=== PATIENT | male | born 1965 | race Caucasian/White ===

== ENCOUNTER 2023-04-20 07:43 | Outpatient (CLI) | payer OTHER, SELFPAY | END 2023-04-20 07:44 | disposition home or self-care (01) | PROVIDERS: PCP Family Medicine; Visit Provider Family Medicine | DX: Z00.00 Encounter for general adult medical examination without abnormal findings (principal); E78.5 Hyperlipidemia, unspecified; I10 Essential (primary) hypertension; Z12.5 Encounter for screening for malignant neoplasm of prostate | CPT/HCPCS: 80048; 80061; 84153 ==

== ENCOUNTER 2023-04-30 08:32 | Outpatient (CLI) | payer OTHER, SELFPAY ==
--- NOTE | 2023-04-30 10:17 | W.ANESCHARGE ---
Anesthesia Charges Start Date/Time Anesthesia Start Date: 04/30/23 Anesthesia Start Time: 09:30 Stop Date/Time Anesthesia Stop Date: 04/30/23 Anesthesia Stop Time: 10:11
== END 2023-04-30 08:33 | disposition home or self-care (01) ==
LOC: OP CLINIC 08:33
PROVIDERS: PCP Family Medicine; Visit Provider Surgery
DX: Z86.010 Personal history of colon polyps (principal); K63.5 Polyp of colon; K57.30 Diverticulosis of large intestine without perforation or abscess without bleeding
CPT/HCPCS: 45385; 811; 88305; J2704

== ENCOUNTER 2023-10-09 08:44 | Outpatient (CLI) | payer OTHER, SELFPAY ==
[2023-10-09] MEDS: REGADENOSON 0.4 MG/5 ML SYRINGE IVP (11:46)
[2023-10-09] MEDS: SODIUM CHLORIDE 0.9 % (FLUSH) 10 ML SYRINGE IVF (11:46)
[2023-10-09 11:47] VITALS: BP 147/91; PULSE 77; RESP 16
--- NOTE | 2023-10-09 12:35 | W.PM.STED ---
Stress Test Note Date Date Seen: 10/09/23 Date of test: 10/09/23 Providers Primary care provider: Dwaine Hobson Stress test physician: Trish Ramirez Stress Test Note Stress test ordered: Lexdominick Indication for test: Carotid calcification, cardiomyopathy Stress test medicine: Rajni Results discussion: Resting EKG: Left bundle branch block, 73 beats per minute. Patient has known pacemaker. Resting blood pressure: 148/88. Stress test: Patient followed walking Lexiscan protocol, tolerated this well. No significant symptoms. Blood pressure initial recovery was 165/93, was 147/91 at and of the monitoring. There was no arrhythmia, no concerning changes on this EKG. The nuclear images are pending to couple this for a full formal diagnostic. Impression: Subjectively asymptomatic, underlying left bundle branch block. Await nuclear images for full formal diagnostic. Follow up suggested: Patient will have post stressed images done, discharge to home after that. He will await contact from his primary care provider once the nuclear images have been read.
== END 2023-10-09 13:24 | disposition home or self-care (01) ==
LOC: STRESS 08:45
PROVIDERS: PCP Family Medicine; Visit Provider Family Medicine
DX: I65.23 Occlusion and stenosis of bilateral carotid arteries (principal)
CPT/HCPCS: 78452; 93016; 93017; A9500; J2785

== ENCOUNTER 2023-10-10 07:08 | Outpatient (CLI) | payer OTHER, SELFPAY ==
--- NOTE | 2023-10-10 07:15 | US_ITS ---
Patient: NARESH SIMON Facility:?[facility] Patient ID:?[id number] Site Patient ID:?[id number]. Site :?[id number] Study:?US-Neck Angio Bilateral CAROTID-10/10/2023 7:51:57 AM Ordering Physician:KANDICE GALE Final Report: CLINICAL HISTORY: OCCLUSION AND STENOSIS OF BILATERAL CAROTID ARTERIES TECHNIQUE: The carotid circulations and the vertebral arteries in the neck were examined with phillips-scale ultrasound, color-flow and Doppler spectral analysis. Degrees of stenosis were determined using SRU 2002 Consensus Panel Criteria. FINDINGS: Sonographic images demonstrate left-sided atherosclerotic plaque formation without suspicious soft tissue mass. There was antegrade blood flow demonstrated within the vertebral arteries and the subclavian arteries demonstrated a normal triphasic waveform. The spectral Doppler tracings of the common carotid, internal and external carotid arteries demonstrate no abnormal turbulence or spectral broadening. There was no significant elevation of peak systolic blood flow which would indicate a hemodynamically-significant stenosis by SRU criteria. The ICA/CCA peak systolic velocity ratio measures 0.7 on the right and 0.9 on the left. IMPRESSION: Less than 50 percent stenosis of the left internal carotid artery. Normal right internal carotid artery. Dictated by Marcelino Duarte MD @ 10/10/2023 10:39:23 AM Signed by:?Marcelino Duarte MD @10/10/2023 10:39:23 AM (Electronic Signature)
== END 2023-10-10 07:09 | disposition home or self-care (01) ==
LOC: US 07:08
PROVIDERS: PCP Family Medicine; Visit Provider Family Medicine
DX: I65.23 Occlusion and stenosis of bilateral carotid arteries (principal); E78.00 Pure hypercholesterolemia, unspecified
CPT/HCPCS: 93880

== ENCOUNTER 2024-08-27 08:55 | Outpatient (CLI) | payer OTHER, SELFPAY | END 2024-08-27 08:56 | disposition home or self-care (01) | PROVIDERS: PCP Family Medicine; Visit Provider Family Medicine | DX: E78.00 Pure hypercholesterolemia, unspecified (principal); I42.0 Dilated cardiomyopathy; Z13.0 Encounter for screening for diseases of the blood and blood-forming organs and certain disorders involving the immune mechanism; Z12.5 Encounter for screening for malignant neoplasm of prostate | CPT/HCPCS: 80048; 80061; G0103 ==

== ENCOUNTER 2025-07-07 16:01 | Outpatient (CLI) | payer OTHER, SELFPAY | END 2025-07-07 16:02 | disposition home or self-care (01) | PROVIDERS: PCP Family Medicine; Visit Provider Family Medicine | DX: I10 Essential (primary) hypertension (principal); E78.00 Pure hypercholesterolemia, unspecified | CPT/HCPCS: 80048; 80061 ==